=== PATIENT | female | born 1950 | race Caucasian/White ===

== ENCOUNTER 2018-09-01 13:42 | Inpatient (IN) | payer MEDICARE, MEDICAID ==
[~2018-09-01] VITALS: Ht 167.6 cm; Wt 69.9 kg
[~2018-09-01 13:42] MED LIST: DIVA-75 PO; DIVALPROEX SODIUM PO
[2018-09-01] MEDS ORDERED: SODIUM CHLORIDE 0.9% 1,000 ML IV ONE (16:33)
[2018-09-01 17:10] LABS: BASOPHILS % 0.7 % (0.0-2.0); EOSINOPHILS % 0.4 % (0.0-5.0); HEMATOCRIT. 26.8 % (36.0-48.0); HEMOGLOBIN. 8.1 g/dL (12.0-16.0); LYMPHOCYTES % 30.5 % (20.0-50.0); MEAN CORPUSCULAR HEMOGLOBIN 20.8 pg (28.0-32.0); MEAN CORPUSCULAR VOLUME 68.7 fL (81.0-99.0); MONOCYTES % 10.8 % (2.0-8.0); NEUTROPHILS % 57.6 % (40.0-76.0); PLATELET 244 x1000/uL (130-400)
[2018-09-01 17:15] LABS: CHLORIDE 104 mEq/L (98-107)
[2018-09-01 17:19] LABS: ETHANOL BLOOD < 10 mg/dL
[2018-09-01 17:21] LABS: INR 1.1; PARTIAL THROMBOPLASTIN TIME 28.9 sec (23.4-31.0); PROTHROMBIN TIME 10.8 sec (9.1-11.1)
[2018-09-01 17:35] LABS: PLATELET ESTIMATE NORMAL
[2018-09-01 23:57] LABS: CLARITY URINE CLOUDY (CLEAR); COLOR URINE YELLOW (YELLOW); KETONES URINE NEGATIVE (NEGATIVE); LEUKOCYTE ESTERASE URINE 3+ (NEGATIVE); NITRITE URINE NEGATIVE (NEGATIVE); OCCULT BLOOD URINE NEGATIVE (NEGATIVE); PROTEIN URINE 1+ (NEGATIVE); SPECIFIC GRAVITY URINE 1.014 (1.005-1.030); UROBILINOGEN URINE 0.2 E.U./dL (0.2-1.0)
[2018-09-02] VITALS (7 sets, daily range): BP systolic 81–112; BP diastolic 44–70
[2018-09-02 00:35] LABS: *AMPHETAMINES SCREEN URINE NEGATIVE (NEGATIVE); *BARBITURATES SCREEN URINE NEGATIVE (NEGATIVE)
[2018-09-02 00:36] LABS: *BENZODIAZEPINES SCREEN URINE NEGATIVE (NEGATIVE); *COCAINE SCREEN URINE NEGATIVE (NEGATIVE); METHADONE URINE SCREEN NEGATIVE (NEGATIVE); OPIATES URINE SCREEN PRESUMTIVE POSITIVE (NEGATIVE)
[2018-09-02 00:37] LABS: CANNABINOID URINE SCREEN NEGATIVE (NEGATIVE); PHENCYCLIDINE URINE SCREEN NEGATIVE (NEGATIVE)
[2018-09-02] MEDS ORDERED: HYDR-3281 PO (01:50)
[2018-09-02] MEDS ORDERED: SODIUM CHLORIDE 0.9% 1,000 ML IV SCH (04:03)
[2018-09-02] MEDS ORDERED: MAGNESIUM/ALUMINUM HYDROXIDE/SIMETHICONE 30ML UDC PO PRN (04:15)
[2018-09-02] MEDS ORDERED: CLONIDINE 0.1MG TABLET PO PRN (04:15)
[2018-09-02] MEDS ORDERED: HYDROCODONE/ACETAMINOPHEN 10/325MG TABLET PO PRN (04:15)
[2018-09-02] MEDS ORDERED: LORAZEPAM 2MG/ML CPJ IV PRN (04:15)
[2018-09-02] MEDS ORDERED: IPRATROPIUM/ALBUTEROL 0.5-3(2.5)MG/3ML NEB INH PRN (04:15)
[2018-09-02] MEDS ORDERED: HYDRALAZINE 20MG/ML VIAL IV PRN (04:15)
[2018-09-02] MEDS ORDERED: DOCUSATE SODIUM 100MG CAPSULE PO PRN (04:15)
[2018-09-02] MEDS ORDERED: MORPHINE SULFATE 4 MG/ML CPJ (NOT FOR IM USE) IV PRN (04:15)
[2018-09-02] MEDS ORDERED: GUAIFENESIN 200MG/10ML SUGAR FREE UDC PO PRN (04:15)
[2018-09-02] MEDS ORDERED: DIPHENHYDRAMINE 50MG/ML VIAL IV PRN (04:15)
[2018-09-02] MEDS ORDERED: ONDANSETRON HCL 4MG/2ML INJ IV PRN (04:15)
[2018-09-02] MEDS ORDERED: ACETAMINOPHEN 325MG TABLET PO PRN (04:15)
[2018-09-02] MEDS ORDERED: CEFTRIAXONE 1 G PREMIX 50 ML IV SCH (05:00)
[2018-09-02] MEDS: SODIUM CHLORIDE 0.9% INJ 3ML FLUSH IVF SCH ×3 (05:06→22:38)
[2018-09-02] MEDS: CEFTRIAXONE 1 G PREMIX 50 ML IV SCH (06:41)
[2018-09-02 08:11] LABS: CHLORIDE 108 mEq/L (98-107)
[2018-09-02 08:23] LABS: CREATINE KINASE MB FRACTION 1.1 ng/mL (0.5-3.6)
[2018-09-02 08:24] LABS: CREATINE KINASE 72 IU/L (26-192)
[2018-09-02] MEDS: ASPIRIN 81MG EC TABLET PO SCH (08:35)
[2018-09-02] MEDS: ENOXAPARIN 40MG/0.4ML SYR SUBCUT SCH (08:35)
[2018-09-02 11:59] LABS: T4 FREE 0.96 ng/dL (0.76-1.46)
[2018-09-02] MEDS: SODIUM CHLORIDE 0.9% 1,000 ML IV SCH (12:58)
[2018-09-02 17:16] LABS: CREATINE KINASE 66 IU/L (26-192)
[2018-09-02 17:17] LABS: CREATINE KINASE MB FRACTION 1.3 ng/mL (0.5-3.6)
[2018-09-03] VITALS: BP 103/65
[2018-09-03 04:00] VITALS: BP 103/63
[2018-09-03] MEDS: CEFTRIAXONE 1 G PREMIX 50 ML IV SCH (05:53)
[2018-09-03] MEDS: SODIUM CHLORIDE 0.9% INJ 3ML FLUSH IVF SCH (05:53)
[2018-09-03] MEDS: SODIUM CHLORIDE 0.9% 1,000 ML IV SCH ×2 (05:54→12:25)
[2018-09-03 07:00] LABS: BASOPHILS % 0.4 % (0.0-2.0); EOSINOPHILS % 1.7 % (0.0-5.0); HEMATOCRIT. 25.8 % (36.0-48.0); LYMPHOCYTES % 51.7 % (20.0-50.0); MEAN CORPUSCULAR HEMOGLOBIN 21.6 pg (28.0-32.0); MEAN CORPUSCULAR VOLUME 69.4 fL (81.0-99.0); MEAN PLATELET VOLUME 7.1 fl (7.4-10.4); MONOCYTES % 5.6 % (2.0-8.0); NEUTROPHILS % 40.6 % (40.0-76.0); PLATELET 249 x1000/uL (130-400); RED BLOOD CELL COUNT 3.72 mill/uL (4.2-5.4); RED CELL DISTRIBUTION WIDTH 19.5 % (11.6-14.6)
[2018-09-03 07:10] LABS: CHLORIDE 109 mEq/L (98-107)
[2018-09-03 07:18] LABS: LDL CHOLESTEROL 91 mg/dL (5-100)
[2018-09-03 07:20] LABS: HDL CHOLESTEROL 38 mg/dL (40-59); T4 FREE 0.96 ng/dL (0.76-1.46)
[2018-09-03] MEDS: ENOXAPARIN 40MG/0.4ML SYR SUBCUT SCH (10:26)
[2018-09-03] MEDS: ASPIRIN 81MG EC TABLET PO SCH (10:26)
[2018-09-03 12:00] VITALS: BP 82/47
[2018-09-03 16:00] VITALS: BP 80/52
[2018-09-04] MEDS ORDERED: CEFTRIAXONE 1,000 MG in DEXTROSE 5% WATER 50 ML IV SCH (05:00)
== END 2018-09-03 17:08 | disposition left against medical advice (07) | DRG 73 ==
LOC: ER 13:42 → 5EST 18:17 → ENRESERV 21:20 → CANBEDREQ 21:36 → 6WST 09-02 01:01
PROVIDERS: ADMIT Internal Medicine; ATTEND Internal Medicine
DX: G90.8 Other disorders of autonomic nervous system (principal); N17.0 Acute kidney failure with tubular necrosis; N39.0 Urinary tract infection, site not specified; E46 Unspecified protein-calorie malnutrition; E78.00 Pure hypercholesterolemia, unspecified; E78.5 Hyperlipidemia, unspecified; M32.9 Systemic lupus erythematosus, unspecified; F19.10 Other psychoactive substance abuse, uncomplicated; Z53.21 Procedure and treatment not carried out due to patient leaving prior to being seen by health care provider; I95.9 Hypotension, unspecified; S51.011A Laceration without foreign body of right elbow, initial encounter; X58.XXXA Exposure to other specified factors, initial encounter; Y93.89 Activity, other specified; Y92.89 Other specified places as the place of occurrence of the external cause; Z79.899 Other long term (current) drug therapy; Y99.8 Other external cause status; Z68.24 Body mass index [BMI] 24.0-24.9, adult
CPT/HCPCS: 36415; 71045; 78582; 80048; 80061; 80305; 80320; 82550; 82553; 83036; 83605; 83880; 84134; 84145; 84439; 84443; 84484; 85379; 87015; 87045; 87427; 87449; 87493; 93005; 93306; 93970; 96361; 96374; 99285; A9558; J0696; J1650; J7030; J7060; G0480

== ENCOUNTER 2019-08-13 22:51 | Inpatient (IN) | payer OTHER ==
[~2019-08-13] VITALS: Ht 170.2 cm; Wt 57.7 kg
[~2019-08-13 22:51] MED LIST changes: +BUPR150T3 PO; +FERR325T23 MT; +FLOR PO; +HYDR-3281 PO; +HYDR-3782 PO; +HYDR200T80 PO; +MIDO10TA PO; +OMEP40CA12 PO; +SIMV10TA97 PO; +ZOLP5TAB2 PO
[2019-08-13] MEDS ORDERED: ONDANSETRON HCL 4MG/2ML INJ IV STA (23:12)
[2019-08-13] MEDS ORDERED: SODIUM CHLORIDE 0.9% 1,000 ML IV ONE (23:12)
[2019-08-13] MEDS ORDERED: LEVETIRACETAM 500MG PREMIX 100 ML IV ONE (23:15)
[2019-08-13 23:40] LABS: BASOPHILS % 0.9 % (0.0-2.0); EOSINOPHILS % 2.6 % (0.0-5.0); HEMATOCRIT. 28.9 % (36.0-48.0); HEMOGLOBIN. 9.2 g/dL (12.0-16.0); MEAN CORPUSCULAR HEMOGLOBIN 24.7 pg (28.0-32.0); MEAN CORPUSCULAR VOLUME 77.7 fL (81.0-99.0); MEAN PLATELET VOLUME 6.8 fl (7.4-10.4); MONOCYTES % 6.4 % (2.0-8.0); NEUTROPHILS % 65.1 % (40.0-76.0); PLATELET 390 x1000/uL (130-400); RED BLOOD CELL COUNT 3.71 mill/uL (4.2-5.4); RED CELL DISTRIBUTION WIDTH 23.1 % (11.6-14.6)
[2019-08-13 23:49] LABS: CHLORIDE 108 mEq/L (98-107)
[2019-08-13 23:49] LABS: BG BASE EXCESS -3.7 mmol/L (-2.0-2.0); BG CARBOXYHEMOGLOBIN 0.1 % (0.5-1.5); BG DEOXYHEMOGLOBIN 8.8 % (0.0-5.0); BG FRACTION INSPIRED OXYGEN 21; BG HCO3 ACT 21.3 mmol/L (22.0-26.0); BG METHEMOGLOBIN 0.3 % (0.0-1.5); BG OXYGEN SATURATION 91.2 % (92.0-98.5); BG OXYHEMOGLOBIN 90.8 % (94.0-97.0); BG PCO2 38.1 mmHg (35.0-45.0); BG PH 7.365 (7.350-7.450); BG PO2 64.9 mmHg (75.0-100.0); BG SAMPLE SITE LEFT BRACHIAL; BG TOTAL HEMOGLOBIN 10.6 g/dL (12.0-18.0); BG VENT MODE ROOM AIR
[2019-08-14 03:05] LABS: PLATELET ESTIMATE NORMAL
[2019-08-14] MEDS ORDERED: HYDROCODONE/ACETAMINOPHEN 5/325MG TABLET PO PRN (07:30)
[2019-08-14] MEDS ORDERED: MORPHINE SULFATE 2 MG/ML CPJ (NOT FOR IM USE) IV PRN (07:30)
[2019-08-14] MEDS: ENOXAPARIN 40MG/0.4ML SYR SUBCUT SCH (09:44)
[2019-08-14] MEDS: SODIUM CHLORIDE 0.9% 1,000 ML IV SCH ×2 (09:50→16:03)
[2019-08-14 16:18] VITALS: BP 124/89
[2019-08-14 17:57] LABS: CREATINE KINASE 97 IU/L (26-192)
[2019-08-14 17:58] LABS: CREATINE KINASE MB FRACTION 1.7 ng/mL (0.5-3.6)
[2019-08-14 20:00] VITALS: BP 104/66
[2019-08-14] MEDS: LORAZEPAM 2MG/ML CPJ IV PRN (20:58)
[2019-08-14] MEDS ORDERED: LORAZEPAM 2MG/ML CPJ IV PRN (21:30)
[2019-08-14] MEDS: VALPROIC ACID 250MG CAPSULE PO SCH (21:40)
[2019-08-15] VITALS: BP 122/64
[2019-08-15 00:46] LABS: CREATINE KINASE 95 IU/L (26-192)
[2019-08-15 00:47] LABS: CREATINE KINASE MB FRACTION 1.5 ng/mL (0.5-3.6)
[2019-08-15] MEDS: LORAZEPAM 2MG/ML CPJ IV PRN ×2 (03:32→09:51)
[2019-08-15 04:00] VITALS: BP 133/74
[2019-08-15] MEDS: VALPROIC ACID 250MG CAPSULE PO SCH ×3 (06:59→21:02)
[2019-08-15 07:32] LABS: BASOPHILS % 0.7 % (0.0-2.0); EOSINOPHILS % 1.9 % (0.0-5.0); HEMATOCRIT. 28.3 % (36.0-48.0); HEMOGLOBIN. 9.2 g/dL (12.0-16.0); LYMPHOCYTES % 20.8 % (20.0-50.0); MEAN CORPUSCULAR HEMOGLOBIN 25.1 pg (28.0-32.0); MEAN CORPUSCULAR VOLUME 77.4 fL (81.0-99.0); MEAN PLATELET VOLUME 7.4 fl (7.4-10.4); NEUTROPHILS % 69.6 % (40.0-76.0); PLATELET 343 x1000/uL (130-400); RED BLOOD CELL COUNT 3.65 mill/uL (4.2-5.4); RED CELL DISTRIBUTION WIDTH 23.4 % (11.6-14.6)
[2019-08-15 07:47] LABS: CHLORIDE 110 mEq/L (98-107)
[2019-08-15 07:52] LABS: PHOSPHORUS 3.6 mg/dL (2.5-4.9)
[2019-08-15 08:00] VITALS: BP 149/81
[2019-08-15] MEDS: ENOXAPARIN 40MG/0.4ML SYR SUBCUT SCH (09:52)
[2019-08-15] MEDS: FOLIC ACID 1MG TABLET PO SCH (09:53)
[2019-08-15] MEDS: SODIUM CHLORIDE 0.9% 1,000 ML IV SCH ×2 (09:54→13:55)
[2019-08-15 12:00] VITALS: BP 138/83
[2019-08-15] MEDS: POTASSIUM CHLORIDE 20MEQ TABLET SR PO SCH (13:13)
[2019-08-15] MEDS ORDERED: DIVALPROEX SODIUM 500MG DR TABLET PO SCH (15:00)
[2019-08-15 16:00] VITALS: BP 140/83
[2019-08-15] MEDS: FERROUS SULFATE 325MG TABLET PO SCH (18:08)
[2019-08-15] MEDS: BUPROPION HCL 150MG SR TABLET PO SCH (18:08)
[2019-08-15] MEDS: HYDROXYCHLOROQUINE SULFATE 200MG TABLET PO SCH (18:08)
[2019-08-15 20:00] VITALS: BP 141/79
[2019-08-15] MEDS: ZOLPIDEM TARTRATE 5MG TABLET PO PRN (21:02)
[2019-08-15] MEDS: HYDROXYZINE 10 MG TABLET PO SCH (21:02)
[2019-08-16] VITALS: BP 130/66
[2019-08-16] MEDS: SODIUM CHLORIDE 0.9% 1,000 ML IV SCH ×3 (02:26→22:21)
[2019-08-16] MEDS: LORAZEPAM 2MG/ML CPJ IV PRN ×2 (03:29→09:39)
[2019-08-16 04:00] VITALS: BP 136/56
[2019-08-16] MEDS: VALPROIC ACID 250MG CAPSULE PO SCH ×3 (06:24→22:20)
[2019-08-16 08:00] VITALS: BP 142/75
[2019-08-16] MEDS: BUPROPION HCL 150MG SR TABLET PO SCH ×2 (09:36→17:51)
[2019-08-16] MEDS: FERROUS SULFATE 325MG TABLET PO SCH ×3 (09:36→17:51)
[2019-08-16] MEDS: POTASSIUM CHLORIDE 20MEQ TABLET SR PO SCH (09:36)
[2019-08-16] MEDS: FOLIC ACID 1MG TABLET PO SCH (09:36)
[2019-08-16] MEDS: HYDROXYCHLOROQUINE SULFATE 200MG TABLET PO SCH ×2 (09:36→17:51)
[2019-08-16] MEDS: ENOXAPARIN 40MG/0.4ML SYR SUBCUT SCH (09:37)
[2019-08-16 20:00] VITALS: BP 150/78
[2019-08-16] MEDS: HYDROXYZINE 10 MG TABLET PO SCH (22:20)
[2019-08-17] VITALS: BP 123/68
[2019-08-17] MEDS: LORAZEPAM 2MG/ML CPJ IV PRN ×2 (00:18→10:27)
[2019-08-17] MEDS: ZOLPIDEM TARTRATE 5MG TABLET PO PRN ×2 (03:27→23:31)
[2019-08-17 04:00] VITALS: BP 123/76
[2019-08-17] MEDS: SODIUM CHLORIDE 0.9% 1,000 ML IV SCH ×2 (06:24→14:54)
[2019-08-17] MEDS: VALPROIC ACID 250MG CAPSULE PO SCH ×3 (06:25→20:48)
[2019-08-17 08:00] VITALS: BP 156/79
[2019-08-17] MEDS: ENOXAPARIN 40MG/0.4ML SYR SUBCUT SCH (09:00)
[2019-08-17] MEDS: POTASSIUM CHLORIDE 20MEQ TABLET SR PO SCH (09:32)
[2019-08-17] MEDS: HYDROXYCHLOROQUINE SULFATE 200MG TABLET PO SCH ×2 (09:32→16:56)
[2019-08-17] MEDS: FOLIC ACID 1MG TABLET PO SCH (09:32)
[2019-08-17] MEDS: FERROUS SULFATE 325MG TABLET PO SCH ×3 (09:32→16:56)
[2019-08-17] MEDS: BUPROPION HCL 150MG SR TABLET PO SCH ×2 (09:33→16:56)
[2019-08-17 20:00] VITALS: BP 123/69
[2019-08-17] MEDS: HYDROXYZINE 10 MG TABLET PO SCH (20:48)
[2019-08-18] VITALS: BP 140/79
[2019-08-18 04:00] VITALS: BP 123/72
[2019-08-18] MEDS: VALPROIC ACID 250MG CAPSULE PO SCH ×3 (06:00→21:07)
[2019-08-18] MEDS: SODIUM CHLORIDE 0.9% 1,000 ML IV SCH ×2 (06:16→14:33)
[2019-08-18 08:00] VITALS: BP 139/69
[2019-08-18] MEDS: FOLIC ACID 1MG TABLET PO SCH (08:59)
[2019-08-18] MEDS: BUPROPION HCL 150MG SR TABLET PO SCH ×2 (08:59→16:35)
[2019-08-18] MEDS: HYDROXYCHLOROQUINE SULFATE 200MG TABLET PO SCH ×2 (08:59→16:35)
[2019-08-18] MEDS: ENOXAPARIN 40MG/0.4ML SYR SUBCUT SCH (08:59)
[2019-08-18] MEDS: POTASSIUM CHLORIDE 20MEQ TABLET SR PO SCH (08:59)
[2019-08-18] MEDS: FERROUS SULFATE 325MG TABLET PO SCH ×3 (08:59→16:35)
[2019-08-18] MEDS: HYDROXYZINE 10 MG TABLET PO PRN (09:33)
[2019-08-18 12:00] VITALS: BP 142/77
[2019-08-18 14:09] LABS: ANA IFA Negative (.)
[2019-08-18 16:00] VITALS: BP 136/74
[2019-08-18 20:00] VITALS: BP 110/58
[2019-08-18] MEDS: HYDROXYZINE 10 MG TABLET PO SCH (21:07)
[2019-08-19] VITALS: BP 114/50
[2019-08-19] MEDS: SODIUM CHLORIDE 0.9% 1,000 ML IV SCH ×3 (02:10→23:16)
[2019-08-19 04:00] VITALS: BP 130/76
[2019-08-19] MEDS: VALPROIC ACID 250MG CAPSULE PO SCH ×3 (06:23→21:42)
[2019-08-19 08:00] VITALS: BP 101/58
[2019-08-19] MEDS: HYDROXYCHLOROQUINE SULFATE 200MG TABLET PO SCH ×2 (08:28→16:36)
[2019-08-19] MEDS: POTASSIUM CHLORIDE 20MEQ TABLET SR PO SCH (08:28)
[2019-08-19] MEDS: FOLIC ACID 1MG TABLET PO SCH (08:29)
[2019-08-19] MEDS: BUPROPION HCL 150MG SR TABLET PO SCH ×2 (08:29→16:36)
[2019-08-19] MEDS: FERROUS SULFATE 325MG TABLET PO SCH ×2 (08:29→13:13)
[2019-08-19] MEDS: ENOXAPARIN 40MG/0.4ML SYR SUBCUT SCH (08:29)
[2019-08-19] MEDS: BISMUTH SUBSALICYLATE 262 MG/15 ML-120ML BOTTLE PO PRN (08:42)
[2019-08-19 12:00] VITALS: BP 133/72
[2019-08-19 15:00] LABS: *BARBITURATES SCREEN URINE NEGATIVE (NEGATIVE); CANNABINOID URINE SCREEN NEGATIVE (NEGATIVE)
[2019-08-19 15:01] LABS: *AMPHETAMINES SCREEN URINE NEGATIVE (NEGATIVE); *BENZODIAZEPINES SCREEN URINE NEGATIVE (NEGATIVE); *COCAINE SCREEN URINE NEGATIVE (NEGATIVE); METHADONE URINE SCREEN NEGATIVE (NEGATIVE); OPIATES URINE SCREEN NEGATIVE (NEGATIVE); PHENCYCLIDINE URINE SCREEN NEGATIVE (NEGATIVE)
[2019-08-19 16:00] VITALS: BP 153/78
[2019-08-19 20:00] VITALS: BP 98/68
[2019-08-19 20:53] LABS: BASOPHILS % 0.9 % (0.0-2.0); EOSINOPHILS % 2.2 % (0.0-5.0); HEMATOCRIT. 28.6 % (36.0-48.0); HEMOGLOBIN. 9.4 g/dL (12.0-16.0); LYMPHOCYTES % 33.5 % (20.0-50.0); MEAN CORPUSCULAR HEMOGLOBIN 25.8 pg (28.0-32.0); MEAN CORPUSCULAR VOLUME 78.1 fL (81.0-99.0); MEAN PLATELET VOLUME 7.7 fl (7.4-10.4); MONOCYTES % 8.7 % (2.0-8.0); NEUTROPHILS % 54.7 % (40.0-76.0); PLATELET 324 x1000/uL (130-400); RED BLOOD CELL COUNT 3.67 mill/uL (4.2-5.4); RED CELL DISTRIBUTION WIDTH 22.1 % (11.6-14.6)
[2019-08-19 21:08] LABS: CHLORIDE 102 mEq/L (98-107)
[2019-08-19] MEDS: HYDROXYZINE 10 MG TABLET PO SCH (21:42)
[2019-08-19] MEDS: ZOLPIDEM TARTRATE 5MG TABLET PO PRN (21:59)
[2019-08-19] MEDS ORDERED: HYDROCODONE/ACETAMINOPHEN 5/325MG TABLET PO PRN (22:00)
[2019-08-20] VITALS: BP 133/80
[2019-08-20 04:00] VITALS: BP 143/69
[2019-08-20] MEDS: VALPROIC ACID 250MG CAPSULE PO SCH ×3 (06:02→21:11)
[2019-08-20] MEDS: HYDROXYZINE 10 MG TABLET PO PRN (06:02)
[2019-08-20 08:00] VITALS: BP 110/70
[2019-08-20] MEDS: FOLIC ACID 1MG TABLET PO SCH (08:03)
[2019-08-20] MEDS: HYDROXYCHLOROQUINE SULFATE 200MG TABLET PO SCH ×2 (08:03→17:23)
[2019-08-20] MEDS: BUPROPION HCL 150MG SR TABLET PO SCH ×2 (08:03→17:23)
[2019-08-20] MEDS: ENOXAPARIN 40MG/0.4ML SYR SUBCUT SCH (08:04)
[2019-08-20] MEDS: POTASSIUM CHLORIDE 20MEQ TABLET SR PO SCH (08:04)
[2019-08-20] MEDS: BISMUTH SUBSALICYLATE 262 MG/15 ML-120ML BOTTLE PO PRN (09:11)
[2019-08-20 12:00] VITALS: BP 137/82
[2019-08-20 16:00] VITALS: BP 106/63
[2019-08-20] MEDS: HYDROCODONE/ACETAMINOPHEN 5/325MG TABLET PO PRN ×2 (17:24→22:30)
[2019-08-20 20:00] VITALS: BP 119/66
[2019-08-20] MEDS: ZOLPIDEM TARTRATE 5MG TABLET PO PRN (21:11)
[2019-08-20] MEDS: HYDROXYZINE 10 MG TABLET PO SCH (21:11)
[2019-08-20] MEDS: SODIUM CHLORIDE 0.9% 1,000 ML IV SCH (21:11)
[2019-08-21] VITALS: BP 115/60
[2019-08-21 04:00] VITALS: BP 134/74
[2019-08-21] MEDS: VALPROIC ACID 250MG CAPSULE PO SCH ×3 (05:38→21:34)
[2019-08-21 08:00] VITALS: BP 136/81
[2019-08-21] MEDS: ENOXAPARIN 40MG/0.4ML SYR SUBCUT SCH (08:38)
[2019-08-21] MEDS: BUPROPION HCL 150MG SR TABLET PO SCH ×2 (08:38→17:52)
[2019-08-21] MEDS: HYDROXYCHLOROQUINE SULFATE 200MG TABLET PO SCH ×2 (08:38→17:52)
[2019-08-21] MEDS: FOLIC ACID 1MG TABLET PO SCH (08:38)
[2019-08-21] MEDS: POTASSIUM CHLORIDE 20MEQ TABLET SR PO SCH (08:38)
[2019-08-21 12:00] VITALS: BP 107/72
[2019-08-21] MEDS: SODIUM CHLORIDE 0.9% 1,000 ML IV SCH (15:15)
[2019-08-21 16:00] VITALS: BP 116/71
[2019-08-21 20:00] VITALS: BP 101/53
[2019-08-21] MEDS: HYDROCODONE/ACETAMINOPHEN 5/325MG TABLET PO PRN (21:37)
[2019-08-22] VITALS (7 sets, daily range): BP systolic 101–127; BP diastolic 55–76
[2019-08-22] MEDS: VALPROIC ACID 250MG CAPSULE PO SCH ×3 (05:40→21:18)
[2019-08-22 06:05] LABS: BASOPHILS % 1.3 % (0.0-2.0); HEMATOCRIT. 30.4 % (36.0-48.0); LYMPHOCYTES % 41.8 % (20.0-50.0); MEAN CORPUSCULAR HEMOGLOBIN 25.6 pg (28.0-32.0); MEAN CORPUSCULAR VOLUME 78.1 fL (81.0-99.0); MEAN PLATELET VOLUME 7.8 fl (7.4-10.4); MONOCYTES % 11.3 % (2.0-8.0); NEUTROPHILS % 43.6 % (40.0-76.0); PLATELET 342 x1000/uL (130-400); RED CELL DISTRIBUTION WIDTH 21.7 % (11.6-14.6)
[2019-08-22 06:17] LABS: CHLORIDE 98 mEq/L (98-107)
[2019-08-22 06:27] LABS: FOLIC ACID (FOLATE) SERUM 14.6 ng/mL (>5.38); PHOSPHORUS 3.7 mg/dL (2.5-4.9)
[2019-08-22] MEDS: FOLIC ACID 1MG TABLET PO SCH (08:36)
[2019-08-22] MEDS: HYDROXYCHLOROQUINE SULFATE 200MG TABLET PO SCH ×2 (08:36→17:44)
[2019-08-22] MEDS: POTASSIUM CHLORIDE 20MEQ TABLET SR PO SCH (08:36)
[2019-08-22] MEDS: ENOXAPARIN 40MG/0.4ML SYR SUBCUT SCH (08:36)
[2019-08-22] MEDS: BUPROPION HCL 150MG SR TABLET PO SCH ×2 (08:36→17:44)
[2019-08-22] MEDS: HYDROCODONE/ACETAMINOPHEN 5/325MG TABLET PO PRN (15:14)
[2019-08-22 19:06] LABS: BARBITURATE SCREEN Negative ug/mL (Cutoff:0.1); BENZODIAZEPINE SCREEN Negative ng/mL (Cutoff:20); OPIATES SCREEN Negative ng/mL (Cutoff:5); PHENCYCLIDINE SCREEN Negative ng/mL (Cutoff:8)
[2019-08-23] VITALS (7 sets, daily range): BP systolic 104–142; BP diastolic 59–79
[2019-08-23] MEDS: VALPROIC ACID 250MG CAPSULE PO SCH ×2 (05:32→13:29)
[2019-08-23] MEDS: BUPROPION HCL 150MG SR TABLET PO SCH ×2 (08:56→16:31)
[2019-08-23] MEDS: HYDROXYCHLOROQUINE SULFATE 200MG TABLET PO SCH ×2 (08:57→16:31)
[2019-08-23] MEDS: FOLIC ACID 1MG TABLET PO SCH (08:57)
[2019-08-23] MEDS: POTASSIUM CHLORIDE 20MEQ TABLET SR PO SCH (08:57)
[2019-08-23] MEDS: ENOXAPARIN 40MG/0.4ML SYR SUBCUT SCH (09:00)
[2019-08-23] MEDS: HYDROCODONE/ACETAMINOPHEN 5/325MG TABLET PO PRN (11:38)
[2019-08-23] MEDS ORDERED: HYDROXYZINE 25MG TABLET PO PRN (17:00)
[2019-08-23] MEDS ORDERED: MIDODRINE HCL 5MG TABLET PO SCH (18:00)
== END 2019-08-23 21:48 | DRG 101 ==
LOC: ER 22:51 → 5WST 08-14 02:36 → EDBEDREQ 08-14 02:38 → EDBEDREQDT 08-14 02:38 → EDBEDREQTM 08-14 02:38 → ENRESERV 08-14 12:35
PROVIDERS: ADMIT Internal Medicine Nephrology; ATTEND Internal Medicine Nephrology
DX: G40.909 Epilepsy, unspecified, not intractable, without status epilepticus (principal); E44.1 Mild protein-calorie malnutrition; E87.1 Hypo-osmolality and hyponatremia; J98.11 Atelectasis; Z68.1 Body mass index [BMI] 19.9 or less, adult; D63.8 Anemia in other chronic diseases classified elsewhere; F20.9 Schizophrenia, unspecified; I10 Essential (primary) hypertension; M32.9 Systemic lupus erythematosus, unspecified; E78.00 Pure hypercholesterolemia, unspecified; E87.6 Hypokalemia; R29.6 Repeated falls; F32.9 Major depressive disorder, single episode, unspecified; M25.752 Osteophyte, left hip; K21.9 Gastro-esophageal reflux disease without esophagitis; R26.9 Unspecified abnormalities of gait and mobility; Z79.899 Other long term (current) drug therapy; Z87.81 Personal history of (healed) traumatic fracture
CPT/HCPCS: 36415; 36600; 70551; 71045; 73522; 80048; 80053; 80165; 80305; 80307; 80320; 82375; 82550; 82553; 82607; 82746; 82805; 83605; 83735; 84100; 84443; 84484; 85025; 86160; 86256; 92523; 92610; 93005; 97110; 97116; 97162; 97166; 97530; 99285; J1650; J1953; J2060; J7030; G0480